=== PATIENT | female | born 1985 | race Caucasian/White ===

== ENCOUNTER 2018-05-08 01:22 | Emergency (ER) | payer SELFPAY ==
[2018-05-08 01:50] VITALS: BP 128/83; PULSE 83; TEMP 97.6; BMI 29.7
--- NOTE | 2018-05-08 04:16 | PDOC ---
History of Present Illness - General Chief Complaint: Pain, Acute Stated Complaint: NECK PAIN/DIZZINESS Time Seen by Provider: 05/08/18 04:11 History Source: Patient Exam Limitations: No Limitations - History of Present Illness Initial Comments: 05/08/18 04:14 32y F presents with 1 month of atraumatic intermittent neck pain and lightheadedness. Pt notes it started off as a mild headache x 4 days and headache resolved but mograted down to her neck. Pt notes it seems worse when she is sleeping. She endorses feeling warm sometimes, notes some burning sensatino on the back of her neck. denies any numbnes/tingling/weakness, current headache, vision changes, n/v, cp, sob, abd pain, back pain, urinary or bowel incontinence. The patient went to an ER in [place] and was given naproxen and flexeril without significant improvement. Past History - Past Medical History Allergies/Adverse Reactions: Allergies Allergy/AdvReac Type Severity Reaction Status Date / Time No Known Allergies Allergy Verified 05/08/18 01:48 Home Medications: Ambulatory Orders NK [No Known Home Medication] 05/08/18 COPD: No - Suicide/Smoking/Psychosocial Hx Smoking History: Never smoked Have you smoked in the past 12 months: No Information on smoking cessation initiated: No Hx Alcohol Use: No Drug/Substance Use Hx: No Review of Systems - Review of Systems Able to Perform ROS?: Yes Comments:: 05/08/18 04:35 Constitutional - no reported Fever, Chills, HEENT: no reported vision changes, sore throat Respiratory: no reported cough, sob, hemoptysis Cardiac: no reported chest pain, palpitations, light headedness, leg swelling Abd/GI: no reported abd pain, nausea, vomiting, blood per rectum, melena, diarrhea : no reported dysuria, frequency, discharge Musculskelatal - +upper neck/back pain no reported back pain, joint swelling skin - no reported bruising, erythema, rash neurological: + headache, no reported numbness, focal weakness, tingling, ataxia, hematologic: no reported easy bruising, easy bleeding *Physical Exam - Vital Signs Last Vital Signs Temp Pulse Resp BP Pulse Ox 97.6 F 83 20 128/83 100 05/08/18 01:48 05/08/18 01:48 05/08/18 01:48 05/08/18 01:48 05/08/18 01:48 - Physical Exam Comments: 05/08/18 04:36 GENERAL: The patient is awake, alert, and fully oriented, Nontoxic - in no acute distress. HEAD: Normocephalic, atraumatic. EYES: extraocular movements intact, sclera anicteric, conjunctiva clear. ENT: Normal voice, Moist mucous membranes. NECK: Normal range of motion, supple, mild reproducible tenderness in the cervical paraspinal muscles and trapezius, neg brudzinski and kernigs LUNGS: Breath sounds equal, clear to auscultation bilaterally. No wheezes, no rhonchi, no rales. HEART: Regular rate and rhythm, normal S1 and S2 without murmur, rub or gallop. ABDOMEN: Soft, nontender, No guarding, no rebound. No CVA tenderness EXTREMITIES: Normal range of motion, no edema. No clubbing or cyanosis. No cords, erythema, or tenderness. NEUROLOGICAL: No facial assymetry, Normal speech, PSYCH: Normal mood, normal affect. SKIN: Warm, Dry, normal turgor, Medical Decision Making - Medical Decision Making 05/08/18 04:36 suspect muscle strain/tension will treat with nsaids and tramadol , heating pad will have pt fu with pmd no clinical signs of dissection, meningitis, or other acute causes of her discomfort I discussed the physical exam findings, ancillary test results and final diagnoses with the patient. I answered all of the patient's questions. The patient was satisfied with the care received and felt comfortable with the discharge plan and treatment plan. The patient will call their primary care physician within 24 hours to arrange follow-up and will return to the Emergency Department with any new, persistent or worsening symptoms. *DC/Admit/Observation/Transfer Diagnosis at time of Disposition: Neck muscle strain Qualifiers: Encounter type: initial encounter Qualified Code(s): S16.1XXA - Strain of muscle, fascia and tendon at neck level, initial encounter - Discharge Dispostion Disposition: HOME Condition at time of disposition: Improved Decision to Admit order: No - Referrals Referrals: [facility] [place] [Provider Group] - Patient Instructions Printed Discharge Instructions: DI for Neck Pain Additional Instructions: Return to the emergency department immediately with ANY new, persistent or worsening symptoms including numbness, tingling, weakness, fevers or any other concerns. Take ibuprofen (400mg)/tylenol(650mg) every 6 hours for 2 days. Apply heat to your sore muscles. You MUST call and follow up with your doctor in 4-5 days for further evaluation of your symptoms. Your emergency department visit is not complete without a followup with your doctor for reevaluation.. Results were discussed with you. Please make sure your doctor reviews the results of your emergency evaluation. - Post Discharge Activity
[2018-05-08] MEDS ORDERED: IBUPROFEN 400 MG TABLET (FP) PO ONE ×2 (04:18→04:47)
[2018-05-08] MEDS ORDERED: traMADol HCL 50 MG TABLET PO ONE (04:33)
[2018-05-08] MEDS ORDERED: traMADol HCL 50 MG TABLET ONE ×2 (04:47→04:50)
== END 2018-05-08 05:06 | disposition home or self-care (01) ==
LOC: JER 01:22
DX: S16.1XXA Strain of muscle, fascia and tendon at neck level, initial encounter (principal); X58.XXXA Exposure to other specified factors, initial encounter; Y93.89 Activity, other specified; Y92.89 Other specified places as the place of occurrence of the external cause; Y99.8 Other external cause status
CPT/HCPCS: 99281-25